=== PATIENT | male | born 1975 | race Caucasian/White ===

== ENCOUNTER 2017-04-17 17:39 | Emergency (ER) | payer OTHER ==
[~2017-04-17] VITALS: Ht 185.4 cm; Wt 99.8 kg
--- NOTE | ~2017-04-17 | CT4 ---
[facility] A Service of [facility] RADIOLOGY TEXT RESULTS PATIENT: ROBERT ROSARIO LOCATION: [facility] : 79 UNIT #: [id number] AGE: [address]: Aruna Yanez MD SEX: M ORDER DR: [id number] [facility] [address] [place], [place] [address] [id number] MR#: [id number] Acc #: [id number] NAME: ROBERT ROSARIO : 1975 SEX: M STUDY DATE/TIME: 04/17/2017 20:09 UNIT: JOSE ROOM: STUDY DESCRIPTION: CT Abd and Pelv Wo Cont Attending Physician: Aruna Yanez M.D. Ordering Physician: Aruna Yanez M.D. Primary Care Physician: Bella Crawford M.D. MEDICAL IMAGING REPORT This report is preliminary unless electronic signature is present EXAM CT scan of the abdomen and pelvis without contrast 04/17/2017 HISTORY Abdomen pain for 4 days. Pain in upper abdomen with diarrhea. Evaluate for obstructing renal calculus. TECHNIQUE Spiral CT was performed through the abdomen and pelvis without oral or intravenous contrast administration using renal stone protocol. This CT exam was performed with one or more of the following radiation dose reduction techniques: automatic exposure control, adjustment of mA and/or kV according to patient size, and iterative reconstruction. FINDINGS ABDOMEN: There is no obstructing renal or ureteral calculus. The liver, spleen, pancreas, gallbladder and biliary tree and adrenal glands are normal. PELVIS: The gut, mesenteric and salas structures are normal. There is no free fluid in the abdomen or pelvis. IMPRESSION No obstructing renal or ureteral calculus. Dictated by... Iban Agustin M.D. THIS IS AN ELECTRONICALLY VERIFIED REPORT Iban Agustin M.D. at 04/18/2017 10:26 AM [facility] A Service of [facility] RADIOLOGY TEXT RESULTS PATIENT: ROBERT ROSARIO LOCATION: [facility] : 79 UNIT #: [id number] AGE: [address]: Aruna Yanez MD SEX: M ORDER DR: AYDEN/thad TD: 04/17/2017 22:22 JOB #: [id number] MEDICAL IMAGING REPORT Page 1 of 1 COPY
[~2017-04-17 17:39] MED LIST: FAMOTIDINE PO; NEXIUM PO; PHENERGAN PO; ULTRAM PO; WELLBUTRIN PO; ZOFRAN ODT4 MG PO; ZOLOFT PO
[2017-04-17 19:19] LABS: BASOPHIL% 0.2 % (0-2.5); EOSINOPHIL# 0.2 X10e3 (0-0.7); EOSINOPHIL% 2.7 % (0.0-7.0); HEMATOCRIT 45.7 % (38.0-50.0); HEMOGLOBIN 15.7 gm/dL (13.0-16.0); LYMPHOCYTE# 2.3 X10e3 (1.0-3.5); LYMPHOCYTE% 26.2 % (17.0-45.0); MEAN CELL VOLUME 88.3 FL (83-96); MEAN CORPUSCULAR HEMOGLOBIN 30.3 PG (28-34); MEAN CORPUSCULAR HGB CONC 34.3 g/dL (30-36); MEAN PLATELET VOLUME 8.7 FL (6.5-11.5); MONOCYTE# 0.8 X10e3 (0-1.0); MONOCYTE% 9.1 % (3.0-12.0); NEUTROPHIL# 5.4 X10e3 (1.5-7.1); NEUTROPHIL% 61.8 % (40-75); PLATELET COUNT 231 X10e3 (140-420); RED BLOOD COUNT 5.17 X10e (3.90-5.60); RED CELL DISTRIBUTION WIDTH 13.1 % (11.0-15.5); WHITE BLOOD COUNT 8.8 X10e3 (4.0-10.5)
[2017-04-17 19:23] LABS: DIFF IND NO
[2017-04-17 19:41] LABS: ALBUMIN SERUM 4.3 g/dL (3.5-5.0); ALCOHOL BLOOD <5 mg/dL (0); ALKALINE PHOSPHATASE 83 U/L (32-92); ALT (SGPT) 20 U/L (10-40); AST (SGOT) 20 U/L (10-42); BILIRUBIN, DIRECT 0.1 mg/dL (0.0-0.2); BILIRUBIN,INDIRECT 0.6 mg/dL (0.0-0.9); BILIRUBIN,TOTAL 0.7 mg/dL (0.2-2.0); BLOOD UREA NITROGEN 12 mg/dL (9-23); BUN/CREATININE RATIO 17.14; CALCIUM SERUM 9.5 mg/dL (8.4-10.2); CARBON DIOXIDE 26 mmol/L (22-31); CHLORIDE 105 mmol/L (100-111); CREATININE SERUM 0.7 mg/dL (0.6-1.4); GLOM FILT RATE Estimated 118.1 mL/min (>60); GLUCOSE FASTING 95 mg/dL (70-110); LIPASE 37 U/L (22-51); POTASSIUM 3.7 mmol/L (3.5-5.1); PROTEIN TOTAL SERUM 7.4 g/dL (6.0-8.3); SODIUM 139 mmol/L (135-145)
[2017-04-17 20:11] LABS: URINE SOURCE CLEAN CATCH
[2017-04-17 20:18] LABS: URINE APPEARANCE CLEAR; URINE BILIRUBIN NEG (NEG); URINE BLOOD NEG (NEG); URINE COLOR YELLOW; URINE GLUCOSE NEG (NEG); URINE KETONE TRACE (NEG); URINE LEUKOCYTE ESTERASE NEG (NEG); URINE NITRATE NEG (NEG); URINE PROTEIN NEG (NEG); URINE SPECIFIC GRAVITY 1.023 (1.003-1.035); URINE UROBILINOGEN 0.2 MG/DL (NEG)
[2017-04-17 20:21] LABS: CULTURE INDICATED? NO
[2017-04-17 20:28] LABS: AMPHETAMINE NEG (NEG); BARBITURATES NEG (NEG); BENZODIAZEPINES NEG (NEG); COCAINE NEG (NEG); MARIJUANA NEG (NEG); OPIATES NEG (NEG); TRICYCLIC ANTIDEPRESSANTS NEG (NEG); U METHADONE NEG (NEG)
== END 2017-04-17 22:15 | disposition home or self-care (01) ==
LOC: CED 17:39
PROVIDERS: Emergency Medicine
DX: R10.13 Epigastric pain (principal); R19.7 Diarrhea, unspecified; F17.210 Nicotine dependence, cigarettes, uncomplicated; Z79.899 Other long term (current) drug therapy
CPT/HCPCS: 36415; 74176; 80048; 80076; 80307; 81003; 83690; 85025; 96374; 99284; G0480; J2405